=== PATIENT | female | born 1980 | race Caucasian/White ===

== ENCOUNTER 2016-08-14 15:19 | Emergency (ER) | payer OTHER, BC ==
[~2016-08-14 15:19] MED LIST: ACETAMINOPHEN-C1 TA PO; ALLEGRA ALLERG180 M1 PO; ALLEGRA ALLERG180 MG PO; ALLEGRA-D 24 H1 EACH PO; ALLEGRA-D1 TAB.SR .; ASPIRIN81 MG PO; AZO TABS95 MG PO; CIPRO500 MG PO; CRANBERRY200 M1 PO; FISH OIL 1,0001 EA10 PO; FISH OIL 1,2001 CAP PO; FISH OIL 1,2001 EAC5 PO; FLONASE ALLERG9.9 ML; GLUCOPHAGE500 M3 PO; GLUCOPHAGE500 MG PO; HYCODAN SYRUP480 ML PO; IBUPROFEN800 MG; LISINOPRIL10 MG PO; MACROBID 100 M100 MG PO; NO MEDICATIONS; NUVARING; NUVARING VAGIN1 EACH VG; OMEPRAZOLE40 M2 PO; ORTHO-CYCLEN1 TAB PO; OXYCODONE/APAP; PHENERGAN25 MG PO; PRENATAL1 TAB; PROBIOTIC1 EAC8 PO; VITAMIN D 22000 UNIT PO; VITAMIN D1000 UNIT PO; VITAMIN D2000 UNI1 PO; VITAMIN D2000 UNIT PO; ZESTORETIC 20-1 EAC2 PO; ZESTORETIC 20-1 EAC3 PO; ZOFRAN ODT8 MG PO; [UNRECOGNIZED DRUG - OTHER] PO
[2016-08-14] MEDS ORDERED: NORCO 5/3251 TAB PO (15:44)
== END 2016-08-14 16:14 ==
LOC: EDMED 15:19
DX: S39.012A Strain of muscle, fascia and tendon of lower back, initial encounter (principal); F17.200 Nicotine dependence, unspecified, uncomplicated; X50.1XXA Overexertion from prolonged static or awkward postures, initial encounter; Y93.89 Activity, other specified; Y99.8 Other external cause status